=== PATIENT | female | born 1965 | race Caucasian/White ===

== ENCOUNTER 2023-05-16 21:11 | Outpatient (REF) | payer OTHER, SELFPAY ==
[2023-05-16 17:32] LABS: ALT 31 U/L (14-59); AST 20 U/L (15-37); Albumin 3.9 g/dL (3.4-5.0); Alkaline Phosphatase 101 U/L (46-116); Anion Gap 7.7 mmol/L (3-11); BUN 14 mg/dL (7-18); Bilirubin, Total 0.4 mg/dL (0.2-1.0); CO2 28.3 mmol/L (21.0-32.0); CREATININE 0.8 mg/dL (0.55-1.02); Calcium 8.9 mg/dL (8.5-10.1); Calculated LDL 188 mg/dL (<100); Chloride 104 mmol/L (98-107); Cholesterol 277 mg/dL (<200); Estimated GFR 84.82 (mL/min/1.73m2); Glucose 104 mg/dL (74-106); HDL Cholesterol 70 mg/dL (40-60); Magnesium 2.1 mg/dL (1.8-2.4); Potassium 4.8 mmol/L (3.5-5.1); Sodium 140 mmol/L (136-145); TSH (W/Ref FT4) 1.54 uIU/mL (0.36-3.74); Total Protein 7.2 g/dL (6.4-8.2); Triglyceride 98 mg/dL (<150)
[2023-05-16 17:47] LABS: Vitamin D 25 Total 44.1 ng/mL (30-100)
[2023-05-16 18:22] LABS: Hemoglobin A1C 5.6 % (<5.7)
[2023-05-18 22:09] LABS: T3,Free 4.4 pg/mL (2.8-5.3)
== END 2023-05-16 21:12 | disposition home or self-care (01) ==
LOC: NCHCN 21:11
PROVIDERS: Visit Provider Family Medicine
DX: E78.5 Hyperlipidemia, unspecified (principal); I10 Essential (primary) hypertension; E55.9 Vitamin D deficiency, unspecified; K76.0 Fatty (change of) liver, not elsewhere classified
CPT/HCPCS: 80053; 80061; 82306; 83036; 83735; 84443; 84481

== ENCOUNTER 2023-11-01 11:47 | Outpatient (REF) | payer OTHER, SELFPAY ==
--- NOTE | 2023-11-01 14:40 | PAPFT_PTH ---
PATIENT: Cathy Bose LOC: [facility] U#:[id number] AGE/SX: 58/F ROOM: RE11/01/[address]: Sherice Hummel : 1965 BED: DIS: 11/01/2023 SPEC #: [id number] RECD: 11/04/23 13:18 STATUS: COLEEN REQ #: [id number] MIKEY: 11/01/23 14:[address]: Sherice Hummel DEPT: [facility] Cytology RECD BY: Felisha Nevarez ENTERED: 11/04/23 13:18 SP TYPE: PAPFT LACI DR: Unknown,Unknown Tissues: 1 - CX/ENDOCX FOR PAP SMEARS Procedures: PAP THIN PREP/[facility] Screening HPV DNA PROBE Comments: [id number]
== END 2023-11-01 11:48 | disposition home or self-care (01) ==
LOC: NCHCN 11:47
PROVIDERS: Visit Provider Family Medicine
DX: Z00.00 Encounter for general adult medical examination without abnormal findings (principal); Z12.4 Encounter for screening for malignant neoplasm of cervix; Z01.419 Encounter for gynecological examination (general) (routine) without abnormal findings
CPT/HCPCS: 88142; 87624

== ENCOUNTER 2024-06-11 17:41 | Outpatient (REF) | payer OTHER, SELFPAY ==
[2024-06-11 21:47] LABS: Calculated LDL 135 mg/dL (<100); Cholesterol 238 mg/dL (<200); HDL Cholesterol 69 mg/dL (40-60); Triglyceride 171 mg/dL (<150)
== END 2024-06-11 17:42 | disposition home or self-care (01) ==
LOC: NCHCN 17:41
PROVIDERS: Visit Provider Family Medicine
DX: E78.5 Hyperlipidemia, unspecified (principal)
CPT/HCPCS: 80061